=== PATIENT | female | born 1990 | race Caucasian/White ===

== ENCOUNTER → 2018-08-13 15:24 | Outpatient (CLI) | payer OTHER, SELFPAY ==
--- NOTE | 2018-08-13 15:31 | US_ITS ---
STUDY: ULTRASOUND TRANSVAGINAL CLINICAL: Female, 28 years old. Abnormal bleeding. TECHNIQUE: Transvaginal COMPARISON: None. FINDINGS: Normal uterine size measuring 8.8 cm in maximal craniocaudal dimension. There are no myometrial masses. Normal endometrial thickness measuring 2.4 mm. There are no endometrial masses, and there is no fluid in the endometrial cavity. There is an intrauterine device in place in a grossly satisfactory position. Normal uterine cervix. Normal right ovary, measuring 2.1 x 2.8 x 2.1 cm. There are multiple follicles without a dominant cyst. Normal left ovary, measuring 3.9 x 2.4 x 2.9 cm. There is a 2.3 x 1.6 x 2.3 cm complex cyst within the left ovary. There is no free fluid in the pelvis. Polycystic ovary disease: No. US/Transvaginal Non- IMPRESSION: Intrauterine device in a grossly satisfactory position. 2.3 x 1.6 x 2.3 centimeter complex cyst within the left ovary may reflect an underlying hemorrhagic cyst or endometrioma. Electronically Signed: Maricruz Hernanedz MD at 16:47 EDT Tel , Service support ,
== END ==
LOC: US 15:29
DX: N93.9 Abnormal uterine and vaginal bleeding, unspecified (principal)
CPT/HCPCS: 76830; 93976